=== PATIENT | female | born 1940 | race Caucasian/White ===

== ENCOUNTER 2016-12-19 13:54 | Emergency (ER) | payer MEDICARE ==
[~2016-12-19] VITALS: Ht 172.7 cm; Wt 89.1 kg
[~2016-12-19 13:54] MED LIST: CYA1000I IM; FES300; LOP100 PO; METF10002 PO; MYCO EXT; OMEP20CA11 PO; SLO64 PO; VENL150C4 PO; VITA1TAB31 PO; WELLXL150T PO; ZES10 PO; ZOC10 PO
[2016-12-19 14:06] VITALS: BP 148/66; PULSE 68; O2SAT 97
--- NOTE | 2016-12-19 14:51 | ED.REPORT ---
HPI-Head Prob / Injury Date of Service Dec 19, 2016 ED Provider: Dr. Meng Pt is a 76 y/o female w/ a hx of NIDDM, HTN, presenting to the ED due to head injury which occurred prior to arrival. The patient tripped on the sidewalk while walking her large dog and hit her right forehead onto pavement. She c/o mild headache. She denies LOC, any other injury, facial pain, neck pain, abdominal pain, back pain, chest pain, SOB. Nursing Notes Stated Complaint: FELL AND HIT HEAD Chief Complaint: Head, Face, Neck Trauma Nursing Notes Reviewed: Yes Allergies: Coded Allergies: codeine (Verified Allergy, Mild, ITCHY, 04/24/15) OK TO TAKE LONG BENEDRYL GIVEN TAPE (Verified Allergy, Unknown, UNKNOWN, 04/24/15) Scheduled Cyanocobalamine (Vitamin B12) 1 Ml Vial 1,000 MCG IM Q30D Lisinopril-Expunged Drug, Do Not Renew! (Lisinopril-Expunged Drug, Do Not Renew! ) 10 Mg Tablet 10 MG PO DAILY Magnesium Chloride (Slow-Mag) 64 Mg Tablet 64 MG PO BID Metformin-Expunged Drug, Do Not Renew! (Metformin-Expunged Drug, Do Not Renew!) 1,000 Mg Tablet 1,000 MG PO BID CONTRAINDICATED: MALES SrCr 1.5 OR GREATER; FEMALES SrCr 1.4 ORGREATER ORCrCl <60; HOLD METFORMIN 48 HOURS AFTER IV CONTRAST ADMINISTRATION. Metoprolol Tart-Expunged Drug, Do Not Renew! (Metoprolol Tart-Expunged Drug, Do Not Renew!) 100 Mg Tablet 100 MG PO BIDWM Omeprazole-Expunged Drug, Do Not Renew! (Omeprazole-Expunged Drug, Do Not Renew! ) 20 Mg Capsule.dr 20 MG PO DAILY Venlafaxine-Expunged Drug, Do Not Renew! (Effexor XR-Expunged Drug, Do Not Renew !) 150 Mg Cap.er.24h 150 MG PO QAM TAKE W/FOOD Vitamin B Complex (Balanced B-100) 1 Each Tablet 1 EACH PO DAILY Miscellaneous Medications Bupropion-Expunged Drug, Do Not Renew! (Bupropion XL-Expunged Drug, Do Not Renew !) 150 Mg Tab.er.24 150 MG PO Ferrous Sulfate-Expunged Drug, Do Not Renew! (Feosol-Expunged Drug, Do Not Renew !) 325 Mg Tablet Nystatin (Nystatin) 20 Applic/15 Gm Oint 30 APPLIC EXT Simvastatin-Expunged Drug, Choose New Med! (Simvastatin-Expunged Drug, Choose New Med!) 10 Mg Tab 60 MG PO General Time Seen by Provider: 15:10 Chief Complaint Blunt head trauma Hx Obtained From: Patient Arrived By: Walk-in Onset Occurred: 1 - 4 hours ago Symptom Duration: Since onset Progression Since Onset: Constant Location: : Forehead Quality: Painful Severity: Current: Mild Severity: Maximum: Mild Past Medical History Past Medical History History of chronic abdominal wound status post multiple abdominal surgeries. History of ruptured gallbladder, status post cholecystectomy. Intermittent ectopy, asymptomatic. Diabetes mellitus type 2, non-insulin using. Slip and fall on her left side, causing rib-related rupture to her small intestines requiring surgical resection, which led to infection of the rib site where the injury occurred, requiring partial resection of a couple of her ribs on that same side. 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 Seasonal allergies, mostly to pollen, with associated postnasal drip. Broken left calcaneus bone with ORIF. Reports: Diabetes mellitus, Hyperlipidemia, Hypertension Reports: Depression Past Surgical History Right total knee replacement. Partial surgical excision of left-sided ribs x2. ORIF of left calcaneus bone. Cholecystectomy. Hysterectomy. Multiple abdominal surgeries. Hernia Reports: Cholecystectomy Smoking History Smoker Current Status UNK Social History Other Social History: Local resident Ambulatory Status Independent Review of Systems Constitutional: Denies: Chills, Fever GI: Denies: Abdominal pain Musculoskeletal: Denies: Back pain Neurologic: Reports: Headache, Denies: Change LOC, Focal weakness, Numbness, Syncope Complete sys rev & neg: except as marked. Respiratory: Denies: Pleuritic pain Cardiovascular: Denies: Chest pain Physical Exam Initial Vital Signs Vital Signs (First) Date Time Temp Pulse Resp B/P Pulse Ox O2 Delivery O2 Flow Rate FiO2 12/19/16 14:06 36.8 68 148/66 97 Room Air 12/19/16 15:23 16 Initial VS: Reviewed, Vital signs normal Respiratory: Breath sounds normal, Clear to auscultation, No respiratory distress Cardiovascular: Regular rate & rhythm, Heart sounds normal, Intact distal pulses Abdomen / GI: Soft, Non-tender, No guarding, No rebound, No distention Extremities: Vascular intact, Neuro intact, No swelling, No tenderness Skin: Warm, Dry, No cyanosis Psychiatric: Mood/affect normal, Behavior normal, Normal thought content General/Constitutional: Awake, Alert, No acute distress, Cooperative, Not toxic appearing Head / Eyes: Normocephalic, PERRL, EOMI, No periorbital redness, No periorbital swelling Right frontal hematoma about 3 cm in size No signs of skull fx ENT: Atraumatic, Airway patent, Mucous membranes moist Neck: Atraumatic, Supple, No meningismus, Full range of motion, No swelling, Non-tender, No midline vertebral tend Neurologic: Oriented X3, Speech NL, No motor deficits, No sensory deficits, CN II - XII intact, Cerebellar NL, Memory NL Interpretation & Diagnostics CT Head Interpretation FINDINGS: Image quality: Excellent. CSF spaces: Basal cisterns are patent. No extra-axial fluid collections. Ventricles are normal in size and shape. Brain: No midline shift. No intracranial masses or hemorrhage. Cardona-white matter interface is normal. Previously noted hypodensity in the right cindy is decreased. Skull and face: Calvarium and visualized facial bones are intact, without suspicious lesions. Right supraorbital scalp hematoma. Sinuses: Visualized sinuses and mastoids are clear. IMPRESSION: No CT evidence of acute intracranial pathology. Dictated by: Janak Ruelas M.D. on 12/19/2016 at 14:57 Approved by: Jnaak Ruelas M.D. on 12/19/2016 at 14:59 Study: Head CT no contrast Interpretation / Wet Read by: Interpret - Radiologist Re-Eval/Medical Decision Med Decision/Clinical Course Given her large hematoma and advanced age head CT was performed and unremarkable. Patient is otherwise stable for discharge. Re-Evaluation/Progress : Time of Eval: 15:16 Re-Evaluation/Progress Note: Pt rechecked. Discussed imaging findings. Informed pt of plan for treatment. Pt understands and agrees with plan for treatment. F/U instructions and RTER warnings given. All questions addressed. Counseled Regarding: Diagnosis, Need for follow-up, When/why to return to ED Discharge & Departure Primary Impression: Scalp hematoma Encounter type: initial encounter Qualified Code: S00.03XA - Contusion of scalp, initial encounter Additional Impressions: Head injury Encounter type: initial encounter Qualified Code: S09.90XA - Unspecified injury of head, initial encounter Fall from ground level Disposition: Home All VS Reviewed: Yes Condition: Stable Patient Instructions: Head Injury (ED) Additional Instructions: The CT scan showed no sign of bleeding in the brain or skull fracture. You have a scalp hematoma. You can use ice and Ibuprofen or Tylenol as directed for pain. Return to the emergency department if you experience severe headache, one-sided numbness or weakness, vision or speech changes, or for other concerning symptoms. Follow-up with your primary care doctor later this week or early next week for a recheck. Referrals: Víctor Jean MD (PCP) Scribe Attestation Portions of this note were transcribed by Yousif Pyle. I, Dr. Meng, personally performed the history, physical exam and medical decision-making; I reviewed and confirmed the accuracy of the information in the transcribed note. Signed by Conchita Barraza, 12/19/16 - [id number] copies to: Víctor Jean MD, Timothy S DO Dec 19, 2016 14:51 YOUSIF PYLE Dec 19, 2016 15:15
--- NOTE | 2016-12-19 15:07 | DRSVH ---
PROCEDURE: CT BRAIN WITHOUT CONTRAST ([id number]) INDICATIONS: fall TECHNIQUE: Noncontrast 4.5 mm thick angled axial sections acquired from the foramen magnum to the vertex, with c oronal reformats. COMPARISON: [facility], [place], BRAIN W/O CONTRAST, 05/11/2013, 8:29. FINDINGS: Image quality: Excellent. CSF spaces: Basal cisterns are patent. No extra-axial fluid collections. Ventricles are normal in size and shape. Brain: No midline shift. No intracranial masses or hemorrhage. Cardona-white matter interface is norm al. Previously noted hypodensity in the right cindy is decreased. Skull and face: Calvarium and visualized facial bones are intact, without suspicious lesions. Right supraorbital scalp hematoma. Sinuses: Visualized sinuses and mastoids are clear. IMPRESSION: No CT evidence of acute intracranial pathology. Dictated by: Janak Ruelas M.D. on 12/19/2016 at 14:57 Approved by: Janak Ruelas M.D. on 12/19/2016 at 14:59
[2016-12-19 15:23] VITALS: BP 126/58; PULSE 62; RESP 16; O2SAT 94
== END 2016-12-19 15:20 | disposition home or self-care (01) ==
LOC: SED 13:54
DX: S00.03XA Contusion of scalp, initial encounter (principal); W01.0XXA Fall on same level from slipping, tripping and stumbling without subsequent striking against object, initial encounter; Y92.481 Parking lot as the place of occurrence of the external cause; Y93.01 Activity, walking, marching and hiking; Y99.8 Other external cause status; E11.9 Type 2 diabetes mellitus without complications; I10 Essential (primary) hypertension; F32.9 Major depressive disorder, single episode, unspecified; E78.5 Hyperlipidemia, unspecified; Z88.5 Allergy status to narcotic agent; Z91.048 Other nonmedicinal substance allergy status